=== PATIENT | female | born 1965 | race African-American/Black ===

== ENCOUNTER 2024-09-30 20:16 | Emergency (ER) | payer MEDICAID, OTHER ==
[~2024-09-30] VITALS: Ht 170.2 cm; Wt 94.3 kg
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
[2024-09-30 21:31] LABS: Hematocrit 37.3 % (36.0-46.0); Hemoglobin 12.2 g/dL (12.2-16.2); Mean Corpuscular Hemoglobin 26.8 pg (28.0-32.0); Mean Corpuscular Volume 81.8 fL (80.0-100.0); Nucleated Red Blood Cells % 0.0 %
[2024-09-30 21:41] LABS: Chloride 106 mmol/L (98-107); Potassium 3.7 mmol/L (3.5-5.1); Sodium 143 mmol/L (136-145)
[2024-09-30 21:42] LABS: Anion Gap 7 (5-15); Carbon Dioxide 30 mmol/L (20-31)
[2024-09-30 21:43] LABS: Calcium 10.0 mg/dL (8.7-10.4)
[2024-09-30 21:47] LABS: Glucose 95 mg/dL (74-106)
[2024-09-30 21:48] LABS: BUN/Creatinine Ratio 12.9 (10.0-20.0); Blood Urea Nitrogen 15 mg/dL (9-23)
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
[2024-09-30] MEDS ORDERED: CYCL-837 PO (23:06)
[2024-09-30] MEDS ORDERED: IBUP-1455 PO (23:06)
[2024-09-30 23:27] VITALS: BP 158/65; PULSE 63; RESP 17; TEMP 97.8; O2SAT 100
--- NOTE | 2024-10-02 06:40 | ECG ---
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
--- NOTE | 2024-10-02 06:40 | ECG ---
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
== END 2024-09-30 23:30 | disposition home or self-care (01) ==
LOC: ER 20:16
DX: R07.89 Other chest pain (principal); Z88.0 Allergy status to penicillin; V89.2XXA Person injured in unspecified motor-vehicle accident, traffic, initial encounter; Y93.89 Activity, other specified; Y92.410 Unspecified street and highway as the place of occurrence of the external cause; Y99.8 Other external cause status
CPT/HCPCS: 36415; 71045; 80048; 84484; 85025; 93005

== ENCOUNTER 2025-03-04 01:21 | Emergency (ER) | payer MEDICAID ==
[~2025-03-04] VITALS: Ht 172.7 cm; Wt 91.8 kg
[~2025-03-04 01:21] MED LIST: CYCL-837 PO; IBUP-1455 PO
--- NOTE | 2025-03-04 02:58 | ED.PDOC ---
History of Present Illness(SKN HPI Comments PT CAME TO THE ER WITH CC OF BODY ACHES AND LEFT SIDED NON RADIATING CHEST WALL SORENESS. 10/07 PAIN PT IS A&OX4 RR EVEN AND REGULAR NO DISTRESS NOTED, PT DENIES ALL OTHER SYMPTOMS AT THIS TIME. DENIES FEVER, CHILLS, NAUSEA, VOMITING, CHEST PAIN, DIFFICULTY BREATHING, INJURY, OR SHORTNESS OF BREATH Chief Complaint: Lower Extremity Time Seen by MD: 01:56 History of Present Illness: Nurses Notes, Medications, Allergies Allergies: Coded Allergies: Penicillins (Verified Allergy, Unknown, 09/30/24) Home Meds Active Scripts Indomethacin (Indomethacin) 50 Mg Cap, 1 CAP PO TID PRN for 5 Days, #15 CAP Prov:CARLY SCHWARTZ GLOVE CLEANER 03/04/25 Colchicine (Colchicine) 0.6 Mg Cap, 0.6 MG PO ONCE for 2 Days, #6 CAP TAKE TWO CAPSULES 1.2 MG BY MOUTH X1. REPEAT ONE CAPSULE 0.6 MG 1 HOUR LATER. REPEAT DOSING IN THREE DAYS IF SYMPTOMS PERSIST. Prov:CARLY SCHWARTZ GLOVE CLEANER 03/04/25 Cyclobenzaprine Hcl (Cyclobenzaprine Hcl) 5 Mg Tab, 1 TAB PO TID, #30 TAB Prov:DUKE MULLER GLOVE CLEANER 09/30/24 Ibuprofen Micronized (Ibuprofen) 800 Mg Tab, 800 MG PO TID PRN, #60 TAB Prov:DUKE MULLER GLOVE CLEANER 09/30/24 Information Source: Patient Mode of Arrival: Ambulatory Past Medical History PAST MEDICAL HISTORY: Denies Surgical History: Denies all surgeries ASSOCIATE PROFESSOR OF MANAGEMENT History: No Pertinent ASSOCIATE PROFESSOR OF MANAGEMENT History Family History Family History: Reviewed,noncontributory to illness Social History Smoker: Non-Smoker Alcohol: Denies ETOH Use Drugs: Denies Drug Use Lives In: Home All Other Systems: Reviewed and Negative (SEE HPI) Physical Exam General Appearance: No Apparent Distress, Normal HEENT: Pharynx Normal Neck: Full Range of Motion, Non-Tender Respiratory: Lungs Clear, No Respiratory Distress, Normal Breath Sounds Cardiovascular: No Edema, No JVD, No Murmur, No Gallop, Normal Peripheral Pulses, Regular Rate/Rhythm Breast Exam: Deferred Gastrointestinal: Non Tender, Soft Genitalia: Deferred Pelvic: Deferred Rectal: Deferred Extremities: No calf tenderness, Normal capillary refill, Normal range of motion, No pedal edema Musculoskeletal : Location: Left Extremity Location: Great Toe (MODERATE EDEMA MTP JOINT WITH TRACE ERYTHEMA NO NOTED LESIONS, WOUNDS, ECCHYMOSIS, ABRASIONS NO NOTED DRAINAGE WARMTH TO TOUCH STRENGTH SENSORY MOTION INTACT CAP REFILL LESS THAN 3 SECONDS) Apperance: Normal Neurologic: Alert, No Motor Deficits, Normal Affect, Normal Mood, No Sensory Deficits Cerebellar Function: Normal Reflexes: NOT DONE Skin: Dry, Normal Color, Warm Lymphatic: No Adenopathy Was a procedure done? Was a procedure done?: No Differential Diagnosis (INTG) Differential Diagnosis: Cellulitis, Fracture, Hematoma, Insect Envenomation, Puncture Wound Differential Diagnosis: Abscess X-Ray, Labs, Meds, VS Vital Signs Date Time Temp Pulse Resp B/P (MAP) Pulse Ox O2 Delivery O2 Flow Rate FiO2 03/04/25 01:45 98.2 74 18 166/108 96 98.2 X-Ray, Labs, Meds, VS Comment Advised to take medication as prescribed side effects discussed. Advised to follow up with his PCP in two days, urgent care, or back in the ER for wound re- evaluation. Advised to keep dressing on, and clean change twice daily. Patient was also advised to return to the ER for increasing pain, numbness, weakness, swelling, fever or chills. Patient indicates understanding and agrees with discharge plan of care. Time of 1ST Reevaluation: 01:56 Reevaluation 1ST: Unchanged Time of 2ND Reevaluation: 03:10 Reevaluation 2ND: Improved Patient Education/Counseling: Diagnosis, Treatment, Need For Follow Up Family Education/Counseling: No Family Present SEPSIS Sepsis Screen Date sepsis recognized/suspect: Mar 04, 2025 Time Sepsis recognized/suspect: 0153 Recent Procedure: No On Antibiotic Therapy: No Respiratory Rate >20: No Heart Rate >90: No Temp<36 C (96.8 F) or >38.3 C: No SBP <90 or MAP <65 mmHG: No New Acute Mental Status Change: No Is the patient on CPAP, BIPAP,: No Vital Signs Date Time Temp Pulse Resp B/P (MAP) Pulse Ox O2 Delivery O2 Flow Rate FiO2 03/04/25 01:45 98.2 74 18 166/108 96 98.2 Departure 1 Departure Time of Disposition: 03:10 Impression: Primary Impression: Gout of big toe Disposition: HOME / SELF CARE / HOMELESS Condition: Stable e-Prescriptions Allopurinol (Allopurinol) 100 Mg Tab 100 MG PO DAILY for 10 Days, #10 TAB Prov: LANACARLY MIKE 03/04/25 Indomethacin (Indomethacin) 50 Mg Cap 1 CAP PO TID PRN for 5 Days, #15 CAP Prov: CARLY SCHWARTZ GLOVE CLEANER 03/04/25 Colchicine (Colchicine) 0.6 Mg Cap 0.6 MG PO ONCE for 2 Days, #6 CAP TAKE TWO CAPSULES 1.2 MG BY MOUTH X1. REPEAT ONE CAPSULE 0.6 MG 1 HOUR LATER. REPEAT DOSING IN THREE DAYS IF SYMPTOMS PERSIST. Prov: CARLY SCHWARTZ 03/04/25 Discharged With: Self Critical Care Note Critical Care Time?: No Stability Stability form required: No CARLY SCHWARTZ Mar 04, 2025 02:58
[2025-03-04] MEDS ORDERED: COLC1CAP PO (03:06)
[2025-03-04] MEDS ORDERED: INDO50CA82 PO (03:06)
[2025-03-04] MEDS ORDERED: ALLO100T PO (03:12)
[2025-03-04] MEDS: KETOROLAC TROMETH 60MG/2ML VIAL IM ONE (03:23)
[2025-03-04] MEDS: predniSONE 20 MG TAB PO ONE (03:23)
[2025-03-04 03:28] VITALS: BP 163/103; PULSE 71; RESP 18; TEMP 98.2; O2SAT 97
== END 2025-03-04 03:31 | disposition home or self-care (01) ==
LOC: ER 01:21
DX: M10.9 Gout, unspecified (principal); Z88.0 Allergy status to penicillin; Z79.899 Other long term (current) drug therapy
CPT/HCPCS: 96372; 99283; J1885; J7512